=== PATIENT | male | born 1985 | race American Indian/Alaskan Native ===

== ENCOUNTER 2019-01-24 21:54 | Emergency (ER) | payer OTHER ==
--- NOTE | 2019-01-24 22:22 | Emergency Department Report ---
Blank Doc - Documentation Documentation: This is a 33-year-old male that presents with dizziness and nausea. Denies any head injuries. This initial assessment/diagnostic orders/clinical plan/treatment(s) is/are subject to change based on patient's health status, clinical progression and re- assessment by fellow clinical providers in the ED. Further treatment and workup at subsequent clinical providers discretion. Patient/guardians urged not to elope from the ED as their condition may be serious if not clinically assessed and managed. Initial orders include: 1- Patient sent to [facility] for further evaluation and treatment. 2- labs
[2019-01-24 23:25] LABS: Basophils # (Auto) 0.1 K/mm3 (0.0-0.1); Basophils % (Auto) 0.5 % (0.0-1.8); Eosinophils # (Auto) 0.2 K/mm3 (0.0-0.4); Eosinophils % (Auto) 1.7 % (0.0-4.3); Hematocrit 40.8 % (35.5-45.6); Hemoglobin 14.4 gm/dl (11.8-15.2); Lymphocytes # (Auto) 3.2 K/mm3 (1.2-5.4); Lymphocytes % (Auto) 29.7 % (13.4-35.0); Mean Corpuscular HGB Conc 35 % (32-34); Mean Corpuscular Volume 82 fl (84-94); Monocytes # (Auto) 0.9 K/mm3 (0.0-0.8); Platelet Count 260 K/mm3 (140-440); Red Blood Count 4.98 M/mm3 (3.65-5.03); Red Cell Distribution Width 14.4 % (13.2-15.2)
[2019-01-24 23:44] LABS: BUN/Creatinine Ratio 10; Blood Urea Nitrogen 11 mg/dL (9-20); Hemolysis Index 16
[2019-01-25] MEDS ORDERED: BENADRYL PO ONE (02:57)
[2019-01-25] MEDS ORDERED: IBUPROFEN PO ONE (02:58)
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
--- NOTE | 2019-01-25 04:27 | Cat Scan Report ---
CT head/brain wo con INDICATION / CLINICAL INFORMATION: dizziness headache. TECHNIQUE: Axial CT imaging of the brain was obtained without IV contrast. Coronal and sagittal reformatted imag ing obtained and reviewed. All CT scans at this location are performed using CT dose reduction for AL ASHLEY by means of automated exposure control. COMPARISON: None available. FINDINGS: No intracranial hemorrhage, mass, or midline shift is present. No extra-axial fluid collection or sug gestion of acute territorial infarct. Ventricular system and basilar cisterns are unremarkable. Visualized paranasal sinuses and mastoid air cells are well aerated and clear. No calvarial abnormali ty. IMPRESSION: 1. Negative noncontrasted head CT scan. Signer Name: Azra Peters MD Signed: 01/25/2019 3:23 AM Workstation Name: [id number]
[2019-01-25 05:24] VITALS: BP 122/66
== END 2019-01-25 05:24 | disposition home or self-care (01) ==
LOC: ED 21:54
DX: S09.90XA Unspecified injury of head, initial encounter (principal); F17.200 Nicotine dependence, unspecified, uncomplicated; Z79.899 Other long term (current) drug therapy; Z88.8 Allergy status to other drugs, medicaments and biological substances; Y04.8XXA Assault by other bodily force, initial encounter; Y93.89 Activity, other specified; Y92.89 Other specified places as the place of occurrence of the external cause; Y99.8 Other external cause status
CPT/HCPCS: 36415; 70450; 80048; 85025; 99284